=== PATIENT | male | born 1970 | race Caucasian/White ===

== ENCOUNTER 2023-01-11 01:12 | Inpatient (IN) | payer OTHER ==
[2023-01-11] MEDS ORDERED: SODIUM CHLORIDE 0.9% 1,000 ML IV STA (01:15)
[2023-01-11] MEDS ORDERED: THIAMINE 100 MG/ML 2 ML VIAL IM STA (01:15)
[2023-01-11] MEDS ORDERED: ONDANSETRON 4 MG/2 ML VIAL IVP STA ×2 (01:16→03:47)
[2023-01-11] MEDS ORDERED: LORazepam 2 MG/ML INJ IV PRN ×2 (01:16)
--- NOTE | 2023-01-11 01:26 | ED ---
Alcohol HPI - General Chief Complaint: Alcohol Stated Complaint: withdrawl Time Seen by Provider: 01/11/23 01:13 Source: patient, RN notes reviewed Mode of arrival: EMS Limitations: no limitations - History of Present Illness Initial Comments: This is a 52-year-old male who presents to the emergency department for alcohol withdrawals. Patient's last drink was last night. States that he consumed 1 pint of vodka, which he typically does daily. He went to check himself into [facility] last night. However, he started to go through withdrawals and was found to be shaking profusely. He was last given Ativan at [facility] around 8 PM yesterday evening. [facility] noted him to be tachycardic with a pulse of 152 and a blood pressure of 99/60, prompting them to call EMS. Shortly after arriving in the emergency department, he started to vomit. States that he has been drinking heavily since he was 16 years old and has never been to rehab be fore or stopped using alcohol to any extent, and has thus never gone through withdrawals. Denies any history of seizures. Denies any fevers, chills, sore throat, cough, dyspnea, chest pain, palpitations, abdominal pain, diarrhea, back pain, or headaches. MD Complaint: alcohol withdrawal - Related Data Home Medications Medication Instructions Recorded Confirmed Acetaminophen Tab [Tylenol] 650 mg PO QID PRN 01/11/23 01/11/23 Amoxicillin 1,000 mg PO BID@0600,1600 01/11/23 01/11/23 Calcium/Magnesium/Zinc/Vitamin D 1 tab PO TID 01/11/23 01/11/23 334/134/5mg Chlorpheniramine Maleate 4 mg PO Q4H PRN 01/11/23 01/11/23 [Chlor-Trimeton] Clarithromycin [Biaxin] 500 mg PO BID@0600,1600 01/11/23 01/11/23 Glimepiride [Amaryl] 2 mg PO DAILY@0600 01/11/23 01/11/23 Ibuprofen [Motrin Ib] 600 mg PO Q6H PRN 01/11/23 01/11/23 LORazepam [Ativan] 1 - 2 mg PO Q4H PRN 01/11/23 01/11/23 Loperamide HCl [Imodium A-D] 4 mg PO QID PRN 01/11/23 01/11/23 Omeprazole 20 mg PO TID@0600,1130,1630 01/11/23 01/11/23 Potassium Chloride ER [K-Dur 10] 20 meq PO DAILY@0600 01/11/23 01/11/23 amLODIPine [Norvasc] 5 mg PO DAILY@0600 01/11/23 01/11/23 ondansetron HCL [Zofran] 8 mg PO Q6H PRN 01/11/23 01/11/23 Allergies Allergy/AdvReac Type Severity Reaction Status Date / Time No Known Allergies Allergy Verified 01/11/23 07:49 Review of Systems ROS Statement: Those systems with pertinent positive or pertinent negative responses have been documented in the HPI. ROS Other: All systems not noted in ROS Statement are negative. Past Medical History - Past Family History Mother Family Medical History: Cancer Additional Family Medical History / Comment(s): breast Father Family Medical History: Cancer Additional Family Medical History / Comment(s): colon General Exam Limitations: no limitations General appearance: alert, other (visibly shaking) Head exam: Present: atraumatic, normocephalic, normal inspection Eye exam: Present: normal appearance, PERRL, EOMI. Absent: scleral icterus, conjunctival injection, periorbital swelling Respiratory exam: Present: normal lung sounds bilaterally. Absent: respiratory distress, wheezes, rales, rhonchi, stridor Cardiovascular Exam: Present: regular rate, normal rhythm, normal heart sounds. Absent: systolic murmur, diastolic murmur, rubs, gallop, clicks Neurological exam: Present: alert, oriented X3, CN II-XII intact Psychiatric exam: Present: normal affect, normal mood Skin exam: Present: warm, dry, intact, normal color. Absent: rash Course Vital Signs 01/11/23 01/11/23 01/11/23 01:19 02:00 03:00 Temperature 98.2 F Pulse Rate 126 H 101 H 102 H Respiratory 16 16 16 Rate Blood Pressure 171/96 176/109 151/95 O2 Sat by Pulse 100 98 99 Oximetry 01/11/23 01/11/23 01/11/23 04:00 05:00 08:39 Temperature Pulse Rate 100 101 H 100 Respiratory 16 16 18 Rate Blood Pressure 151/95 169/103 132/105 O2 Sat by Pulse 98 98 98 Oximetry 01/11/23 01/11/23 01/11/23 10:20 11:19 13:02 Temperature 98.3 F Pulse Rate 114 H 89 108 H Respiratory 20 18 Rate Blood Pressure 154/102 108/74 O2 Sat by Pulse 99 96 Oximetry Medical Decision Making - Medical Decision Making This is a 52-year-old male who presents to the emergency department for alcohol withdrawals. Was pt. sent in by a medical professional or institution? @ -[facility] Did you speak to anyone other than the patient for history? @ -EMS Did you review nursing and triage notes? @ -Yes, and I agree, it is accurate with regards to the patient's symptoms. Were old charts reviewed? @ -No Differential Diagnosis? @ -Differential Alcohol Withdrawals: Sympathomimetic syndrome, anti-muscarinic syndrome, serotonin syndrome, neuroleptic malignant syndrome, thyrotoxicosis, encephalitis, acute psychosis, hypoglycemia, trauma, sepsis. This is not meant to be an all-inclusive list. EKG interpreted by me (3pts min.)? @ -Sinus rhythm. Ventricular rate 96 bpm, ND interval 169 ms, QRS duration 92 ms, QTC 447 ms. What testing was considered but not performed? (CT, X-rays, U/S, labs)? Why? @ -None What meds were considered but not given? Why? @ -None Did you discuss the management of the patient with other professionals? @ -Yes, Dr. Johnson spoke with Dr. Diaz, who accepts the patient for admission. Did you reconcile home meds? @ -No Was smoking cessation discussed for >3mins.? @ -No Was critical care preformed (if so, how long)? @ -No Were there social determinants of health that impacted care today? How? (Homelessness, low income, unemployed, alcoholism, drug addiction, transportation, low edu. Level, literacy, decrease access to med. care, fpc, rehab)? @ -No Was there de-escalation of care discussed even if they declined? (Discuss DNR or withdrawal of care, Hospice)? @ -No What co-morbidities impacted this encounter? (DM, HTN, Smoking, COPD, CAD, Cancer, CVA, Hep., AIDS, mental health diagnosis, sleep apnea, morbid obesity)? @ -Alcoholism, DM, HTN, GERD Was patient admitted / discharged? @ -Admitted. CIWA protocol was initiated on arrival. Lab work obtained revealing multiple electrolyte irregularities, including hypokalemia, hypomagnesemia, and hypocalcemia. He was given 4g of IV magnesium sulfate and 1g of IV calcium gluconate. We attempted to give him 40 mEq of K-dur, however he proceeded to throw this back up and he was subsequently given IVPB potassium chloride. Liver enzymes are also notably elevated. We do not have any prior values for comparison, however this is to be expected with his chronic alcohol use. 1 liter bolus of IV fluids, IM thiamine, and Zofran were administered as well. He did continue to be notably shaky in the emergency department. Given the multiple electrolyte irregularities and alcohol withdrawal symptoms, patient admitted to medicine for further management. Undiagnosed new problem with uncertain prognosis? @ -None Drug Therapy requiring intensive monitoring for toxicity (Heparin, Nitro, Insulin, Cardizem)? @ -None Were any procedures done? @ -None Diagnosis/symptom? @ -Alcohol withdrawals, hypomagnesemia, hypocalcemia, hypokalemia Acute, or Chronic, or Acute on Chronic? @ -Acute Uncomplicated (without systemic symptoms) or Complicated (systemic symptoms)? @ -Complicated Side effects of treatment? @ -None Exacerbation, Progression, or Severe Exacerbation] @ -Not applicable Poses a threat to life or bodily function? @ -Yes This case was discussed in detail with the attending ED physician, Dr. Johnson. Presentation, findings, and treatment plan discussed in detail as well. - Lab Data Result diagrams: 01/11/23 01:33 01/11/23 01:33 Lab Results 01/11/23 01/11/23 01/11/23 Range/Units 01:33 01:33 01:33 WBC 9.4 (3.8-10.6) k/uL RBC 3.79 L (4.30-5.90) m/uL Hgb 14.4 (13.0-17.5) gm/dL Hct 40.9 (39.0-53.0) % MCV 107.9 H (80.0-100.0) fL MCH 37.9 H (25.0-35.0) pg MCHC 35.2 (31.0-37.0) g/dL RDW 13.9 (11.5-15.5) % Plt Count 67 L (150-450) k/uL MPV 10.3 Neutrophils % 67 % Lymphocytes % 24 % Monocytes % 6 % Eosinophils % 1 % Basophils % 1 % Neutrophils # 6.3 (1.3-7.7) k/uL Lymphocytes # 2.3 (1.0-4.8) k/uL Monocytes # 0.6 (0-1.0) k/uL Eosinophils # 0.1 (0-0.7) k/uL Basophils # 0.1 (0-0.2) k/uL Macrocytosis Moderate PT 12.2 H (9.0-12.0) sec INR 1.2 H (<1.2) Sodium 137 (137-145) mmol/L Potassium 3.1 L (3.5-5.1) mmol/L Chloride 97 L (98-107) mmol/L Carbon Dioxide 25 (22-30) mmol/L Anion Gap 15 mmol/L BUN 8 L (9-20) mg/dL Creatinine 0.49 L (0.66-1.25) mg/dL Est GFR (CKD-EPI)AfAm >90 (>60 ml/min/1.73 sqM) Est GFR (CKD-EPI)NonAf >90 (>60 ml/min/1.73 sqM) Glucose 177 H (74-99) mg/dL Calcium 8.0 L (8.4-10.2) mg/dL Phosphorus 3.3 (2.5-4.5) mg/dL Magnesium 1.0 L (1.6-2.3) mg/dL Total Bilirubin 2.3 H (0.2-1.3) mg/dL AST 248 H (17-59) U/L ALT 64 H (4-49) U/L Alkaline Phosphatase 94 (38-126) U/L Total Protein 7.3 (6.3-8.2) g/dL Albumin 3.8 (3.5-5.0) g/dL Amylase 41 (30-110) U/L Lipase 254 (23-300) U/L Urine Color Urine Appearance (Clear) Urine pH (5.0-8.0) Ur Specific Fifield (1.001-1.035) Urine Protein (Negative) Urine Glucose (UA) (Negative) Urine Ketones (Negative) Urine Blood (Negative) Urine Nitrite (Negative) Urine Bilirubin (Negative) Urine Urobilinogen (<2.0) mg/dL Ur Leukocyte Esterase (Negative) Urine Opiates Screen (NotDetected) Ur Oxycodone Screen (NotDetected) Urine Methadone Screen (NotDetected) Ur Propoxyphene Screen (NotDetected) Ur Barbiturates Screen (NotDetected) U Tricyclic Antidepress (NotDetected) Ur Phencyclidine Scrn (NotDetected) Ur Amphetamines Screen (NotDetected) U Methamphetamines Scrn (NotDetected) U Benzodiazepines Scrn (NotDetected) Urine Cocaine Screen (NotDetected) U Marijuana (THC) Screen (NotDetected) Serum Alcohol 27 mg/dL 01/11/23 Range/Units 03:46 WBC (3.8-10.6) k/uL RBC (4.30-5.90) m/uL Hgb (13.0-17.5) gm/dL Hct (39.0-53.0) % MCV (80.0-100.0) fL MCH (25.0-35.0) pg MCHC (31.0-37.0) g/dL RDW (11.5-15.5) % Plt Count (150-450) k/uL MPV Neutrophils % % Lymphocytes % % Monocytes % % Eosinophils % % Basophils % % Neutrophils # (1.3-7.7) k/uL Lymphocytes # (1.0-4.8) k/uL Monocytes # (0-1.0) k/uL Eosinophils # (0-0.7) k/uL Basophils # (0-0.2) k/uL Macrocytosis PT (9.0-12.0) sec INR (<1.2) Sodium (137-145) mmol/L Potassium (3.5-5.1) mmol/L Chloride (98-107) mmol/L Carbon Dioxide (22-30) mmol/L Anion Gap mmol/L BUN (9-20) mg/dL Creatinine (0.66-1.25) mg/dL Est GFR (CKD-EPI)AfAm (>60 ml/min/1.73 sqM) Est GFR (CKD-EPI)NonAf (>60 ml/min/1.73 sqM) Glucose (74-99) mg/dL Calcium (8.4-10.2) mg/dL Phosphorus (2.5-4.5) mg/dL Magnesium (1.6-2.3) mg/dL Total Bilirubin (0.2-1.3) mg/dL AST (17-59) U/L ALT (4-49) U/L Alkaline Phosphatase (38-126) U/L Total Protein (6.3-8.2) g/dL Albumin (3.5-5.0) g/dL Amylase (30-110) U/L Lipase (23-300) U/L Urine Color Yellow Urine Appearance Clear (Clear) Urine pH 6.5 (5.0-8.0) Ur Specific Fifield 1.011 (1.001-1.035) Urine Protein Negative (Negative) Urine Glucose (UA) 4+ H (Negative) Urine Ketones Negative (Negative) Urine Blood Negative (Negative) Urine Nitrite Negative (Negative) Urine Bilirubin Negative (Negative) Urine Urobilinogen <2.0 (<2.0) mg/dL Ur Leukocyte Esterase Negative (Negative) Urine Opiates Screen Not Detected (NotDetected) Ur Oxycodone Screen Not Detected (NotDetected) Urine Methadone Screen Not Detected (NotDetected) Ur Propoxyphene Screen Not Detected (NotDetected) Ur Barbiturates Screen Not Detected (NotDetected) U Tricyclic Antidepress Not Detected (NotDetected) Ur Phencyclidine Scrn Not Detected (NotDetected) Ur Amphetamines Screen Not Detected (NotDetected) U Methamphetamines Scrn Not Detected (NotDetected) U Benzodiazepines Scrn Detected H (NotDetected) Urine Cocaine Screen Not Detected (NotDetected) U Marijuana (THC) Screen Detected H (NotDetected) Serum Alcohol mg/dL Disposition Clinical Impression: Alcohol withdrawal syndrome, Hypomagnesemia, Hypocalcemia, Hypokalemia Disposition: ADMITTED IP TO THIS HOSP
[2023-01-11 01:39] LABS: Basophils # (A) 0.1 k/uL (0-0.2); Basophils % (A) 1 %; Eosinophils # (A) 0.1 k/uL (0-0.7); Eosinophils % (A) 1 %; HCT 40.9 % (39.0-53.0); HGB 14.4 gm/dL (13.0-17.5); Lymphocytes # (A) 2.3 k/uL (1.0-4.8); Lymphocytes % (A) 24 %; MCH 37.9 pg (25.0-35.0); MCHC 35.2 g/dL (31.0-37.0); MCV 107.9 fL (80.0-100.0); Macrocytosis Moderate; Mean Platelet Volume 10.3; Monocytes # (A) 0.6 k/uL (0-1.0); Monocytes % (A) 6 %; Neutrophils # (A) 6.3 k/uL (1.3-7.7); Neutrophils % (A) 67 %; RBC 3.79 m/uL (4.30-5.90); RDW 13.9 % (11.5-15.5); WBC 9.4 k/uL (3.8-10.6)
[2023-01-11 01:52] LABS: ALT 64 U/L (4-49); AST 248 U/L (17-59); African American GFR (CKD) >90 (>60 ml/min/1.73 sqM); Albumin 3.8 g/dL (3.5-5.0); Alcohol 27 mg/dL; Alkaline Phosphatase 94 U/L (38-126); Amylase 41 U/L (30-110); Anion Gap 15 mmol/L; Blood Urea Nitrogen 8 mg/dL (9-20); Carbon Dioxide 25 mmol/L (22-30); Chloride 97 mmol/L (98-107); Glucose 177 mg/dL (74-99); Lipase 254 U/L (23-300); Non-African American GFR(CKD) >90 (>60 ml/min/1.73 sqM); Phosphorus 3.3 mg/dL (2.5-4.5); Potassium 3.1 mmol/L (3.5-5.1); Sodium 137 mmol/L (137-145); Total Bilirubin 2.3 mg/dL (0.2-1.3); Total Protein 7.3 g/dL (6.3-8.2)
[2023-01-11] MEDS ORDERED: CALCIUM GLUCONATE IN NACL 1 GM in SALINE 1 100ML.BAG IVPB ONE (01:58)
[2023-01-11 02:21] LABS: Platelet Count 67 k/uL (150-450)
[2023-01-11] MEDS: MAGNESIUM SULFATE-D5W PMX 1 GM in DEXTROSE/WATER 1 100ML.BAG IVPB SCH ×6 (02:23→18:37)
[2023-01-11] MEDS ORDERED: POTASSIUM CHLORIDE ER 20 MEQ TAB.ER PO STA (03:16)
[2023-01-11 03:21] LABS: INR 1.2 (<1.2); Prothrombin Time 12.2 sec (9.0-12.0)
[2023-01-11] MEDS ORDERED: POTASSIUM CHLORIDE 20 MEQ in WATER FOR INJECTION 1 100ML.BAG IVPB STA (03:49)
[2023-01-11 04:20] LABS: Appearance,Urine Clear (Clear); Bilirubin,Urine Negative (Negative); Blood,Urine Negative (Negative); Color,Urine Yellow; Glucose,Urine (UA) 4+ (Negative); Ketones,Urine Negative (Negative); Leukocyte Esterase,Urine Negative (Negative); Nitrite,Urine Negative (Negative); PH, Urine 6.5 (5.0-8.0); Protein,Urine Negative (Negative); Specific Gravity,Urine 1.011 (1.001-1.035); Urobilinogen,Urine <2.0 mg/dL (<2.0)
[2023-01-11 04:46] LABS: Amphetamine Screen,Urine Not Detected (NotDetected); Barbiturate Screen,Urine Not Detected (NotDetected); Benzodiazepines Screen,Urine Detected (NotDetected); Cocaine Screen,Urine Not Detected (NotDetected); Methadone Screen, Urine Not Detected (NotDetected); Opiate Screen,Urine Not Detected (NotDetected); Oxycodone Screen, Urine Not Detected (NotDetected); Phencyclidine Screen,Urine Not Detected (NotDetected); Tricyclic Antidepressant,Urine Not Detected (NotDetected); Urn Cannabinoid Scrn Detected (NotDetected)
[2023-01-11] MEDS ORDERED: NALOXONE 0.4 MG/ML 1 ML VIAL IV PRN (04:48)
[2023-01-11] MEDS ORDERED: IBUPROFEN 400 MG TAB PO PRN (04:48)
[2023-01-11] MEDS ORDERED: KETOROLAC 15 MG/ML 1 ML VIAL IVP PRN (04:48)
[2023-01-11] MEDS ORDERED: ONDANSETRON 4 MG/2 ML VIAL IVP PRN (04:48)
[2023-01-11] MEDS: LORazepam 2 MG/ML INJ IV PRN ×3 (07:18→11:13)
[2023-01-11] MEDS: PANTOPRAZOLE 40 MG/10 ML VIAL IV SCH (08:35)
[2023-01-11] MEDS: THIAMINE 100 MG TAB PO SCH (08:36)
[2023-01-11] MEDS ORDERED: ACETAMINOPHEN TAB 325 MG TAB PO PRN (16:04)
[2023-01-11] MEDS ORDERED: diphenhydrAMINE 25 MG CAP PO PRN (16:04)
[2023-01-11] MEDS ORDERED: ONDANSETRON 4 MG TAB PO PRN (16:04)
[2023-01-11] MEDS ORDERED: LOPERAMIDE 2 MG CAP PO PRN (16:04)
[2023-01-11] MEDS ORDERED: NON FORMULARY DRUG (Omeprazole [Omeprazole] 20 MG Capsule.Dr) PO SCH (16:30)
[2023-01-11 20:02] LABS: Glucose,Whole Blood 240 mg/dL (70-110)
[2023-01-11] MEDS ORDERED: NON FORMULARY DRUG (Calcium/Magnesium/Zinc/Vitamin D 334/134/5mg 1 TAB) PO SCH (22:00)
[2023-01-12] MEDS: LORazepam 2 MG/ML INJ IV PRN ×4 (03:05→21:10)
[2023-01-12 05:50] LABS: Glucose,Whole Blood 176 mg/dL (70-110)
[2023-01-12] MEDS: POTASSIUM CHLORIDE ER 20 MEQ TAB.ER PO SCH ×4 (06:00→13:36)
[2023-01-12] MEDS: amLODIPine 5 MG TAB PO SCH (06:00)
[2023-01-12] MEDS: GLIMEPIRIDE 2 MG TAB PO SCH (06:00)
--- NOTE | 2023-01-12 06:39 | HP ---
HISTORY AND PHYSICAL HISTORY OF PRESENT ILLNESS: A 52-year-old male came to the hospital from [facility] for tremors and alcohol withdrawals. He is nauseated. He was dehydrated. PAST MEDICAL HISTORY: Alcohol withdrawal. MEDICATIONS: Include multiple vitamins at home. He takes, 1. Amaryl 2 mg daily for diabetes. 2. Ativan p.r.n. 3. Omeprazole 20 t.i.d. 4. Norvasc 5 mg daily. ALLERGIES: Negative. REVIEW OF SYSTEMS: A 14-point review of systems is negative except for tremor. PAST MEDICAL HISTORY: Reviewed. SOCIAL HISTORY: Reviewed. PHYSICAL EXAMINATION: VITAL SIGNS: Temperature 98.2, pulse is 101 to 126, respiratory rate 12 to 16, blood pressure is 150s to 170s over 90s to 100s. CARDIOVASCULAR: S1, S2. LUNGS: Transmitted upper sounds. HEMATOLOGY: Negative Homans. PSYCH: Fair mood and affect. NEUROLOGIC: Mild tremor. ASSESSMENT: Alcohol withdrawal, hypertension acceleration, possible depression. Continue current treatments. blood pressure control. Monitor liver enzymes. Prognosis guarded. MMODL / IJN: [id number] /
[2023-01-12] MEDS: PANTOPRAZOLE 40 MG/10 ML VIAL IV SCH (08:38)
[2023-01-12] MEDS: THIAMINE 100 MG TAB PO SCH (08:38)
[2023-01-12 09:28] LABS: Basophils % (A) 0 %; Eosinophils # (A) 0.1 k/uL (0-0.7); Eosinophils % (A) 1 %; HGB 13.3 gm/dL (13.0-17.5); Lymphocytes # (A) 1.5 k/uL (1.0-4.8); Lymphocytes % (A) 19 %; MCV 108.7 fL (80.0-100.0); Macrocytosis Marked; Mean Platelet Volume 11.2; Monocytes # (A) 0.5 k/uL (0-1.0); Monocytes % (A) 6 %; Neutrophils # (A) 5.7 k/uL (1.3-7.7); Neutrophils % (A) 73 %; RBC 3.59 m/uL (4.30-5.90); RDW 13.8 % (11.5-15.5); WBC 7.8 k/uL (3.8-10.6)
[2023-01-12 09:49] LABS: ALT 48 U/L (4-49); AST 155 U/L (17-59); African American GFR (CKD) >90 (>60 ml/min/1.73 sqM); Albumin 3.3 g/dL (3.5-5.0); Alkaline Phosphatase 93 U/L (38-126); Anion Gap 9 mmol/L; Blood Urea Nitrogen 9 mg/dL (9-20); Calcium 7.4 mg/dL (8.4-10.2); Carbon Dioxide 28 mmol/L (22-30); Chloride 95 mmol/L (98-107); Glucose 225 mg/dL (74-99); Magnesium 1.9 mg/dL (1.6-2.3); Non-African American GFR(CKD) >90 (>60 ml/min/1.73 sqM); Potassium 2.9 mmol/L (3.5-5.1); Sodium 132 mmol/L (137-145); Total Bilirubin 2.5 mg/dL (0.2-1.3); Total Protein 6.7 g/dL (6.3-8.2)
[2023-01-12] MEDS ORDERED: MAGNESIUM SULFATE-D5W PMX 1 GM in DEXTROSE/WATER 1 100ML.BAG IVPB ONE (10:45)
[2023-01-12] MEDS ORDERED: Magnesium Replacement Protocol 1 EACH MISC MISCELLANE PRN (10:45)
[2023-01-12] MEDS ORDERED: Potassium Replacement Protocol 1 EACH MISC MISCELLANE PRN (10:47)
[2023-01-12 11:22] LABS: Platelet Count 64 k/uL (150-450)
[2023-01-12 11:36] LABS: Glucose,Whole Blood 178 mg/dL (70-110)
[2023-01-12 16:40] LABS: Glucose,Whole Blood 219 mg/dL (70-110)
[2023-01-12 20:24] LABS: Glucose,Whole Blood 167 mg/dL (70-110)
[2023-01-13] MEDS: LORazepam 2 MG/ML INJ IV PRN (01:15)
[2023-01-13] MEDS: amLODIPine 5 MG TAB PO SCH (05:34)
[2023-01-13 05:35] VITALS: RESP 18
[2023-01-13 06:20] LABS: Glucose,Whole Blood 124 mg/dL (70-110)
[2023-01-13] MEDS: POTASSIUM CHLORIDE ER 20 MEQ TAB.ER PO SCH (07:05)
[2023-01-13] MEDS: GLIMEPIRIDE 2 MG TAB PO SCH (07:06)
[2023-01-13 07:44] LABS: Basophils % (A) 0 %; Eosinophils # (A) 0.1 k/uL (0-0.7); Eosinophils % (A) 2 %; HCT 41.4 % (39.0-53.0); HGB 14.2 gm/dL (13.0-17.5); Lymphocytes # (A) 2.3 k/uL (1.0-4.8); Lymphocytes % (A) 26 %; MCH 38.2 pg (25.0-35.0); MCHC 34.3 g/dL (31.0-37.0); Macrocytosis Marked; Mean Platelet Volume 11.4; Monocytes # (A) 0.5 k/uL (0-1.0); Monocytes % (A) 6 %; Neutrophils # (A) 5.7 k/uL (1.3-7.7); Neutrophils % (A) 64 %; RBC 3.71 m/uL (4.30-5.90); RDW 13.9 % (11.5-15.5); WBC 8.9 k/uL (3.8-10.6)
[2023-01-13 07:48] LABS: MCV 111.5 fL (80.0-100.0); Platelet Count 87 k/uL (150-450)
[2023-01-13 07:56] LABS: ALT 58 U/L (4-49); AST 174 U/L (17-59); African American GFR (CKD) >90 (>60 ml/min/1.73 sqM); Albumin 3.6 g/dL (3.5-5.0); Alkaline Phosphatase 92 U/L (38-126); Anion Gap 7 mmol/L; Blood Urea Nitrogen 10 mg/dL (9-20); Calcium 7.9 mg/dL (8.4-10.2); Carbon Dioxide 29 mmol/L (22-30); Chloride 100 mmol/L (98-107); Glucose 103 mg/dL (74-99); Magnesium 1.9 mg/dL (1.6-2.3); Non-African American GFR(CKD) >90 (>60 ml/min/1.73 sqM); Potassium 3.8 mmol/L (3.5-5.1); Sodium 136 mmol/L (137-145); Total Bilirubin 2.6 mg/dL (0.2-1.3); Total Protein 7.4 g/dL (6.3-8.2)
[2023-01-13] MEDS: PANTOPRAZOLE 40 MG/10 ML VIAL IV SCH (07:57)
[2023-01-13] MEDS: THIAMINE 100 MG TAB PO SCH (07:57)
[2023-01-13 11:47] LABS: Glucose,Whole Blood 225 mg/dL (70-110)
--- NOTE | 2023-01-13 11:47 | P.DS ---
Providers Date of admission: 01/11/23 07:54 Attending physician: Darien Diaz Primary care physician: Stated None Hospital Course: Pleasant 52-year-old male admitted for alcohol withdrawal patient last alcohol use was 4 days ago patient is presently not having withdrawals and patient is not requiring Ativan patient will be discharged today. Patient is on amlodipine for hypertension although patient blood pressure is on the low side because of which were discontinued and amlodipine and patient will be discharged today. Patient will go to [facility] today from here. Counseling regarding marijuana use was provided as well. PHYSICAL EXAMINATION: GENERAL: The patient is alert and oriented x3, not in any acute distress. Well developed, well nourished. HEENT: Pupils are round and equally reacting to light. EOMI. No scleral icterus. No conjunctival pallor. Normocephalic, atraumatic. No pharyngeal erythema. No thyromegaly. CARDIOVASCULAR: S1 and S2 present. No murmurs, rubs, or gallops. PULMONARY: Chest is clear to auscultation, no wheezing or crackles. ABDOMEN: Soft, nontender, nondistended, normoactive bowel sounds. No palpable organomegaly. MUSCULOSKELETAL: No joint swelling or deformity. EXTREMITIES: No cyanosis, clubbing, or pedal edema. NEUROLOGICAL: Gross neurological examination did not reveal any focal deficits. SKIN: No rashes. -Alcohol withdrawal resolved -Acute alcoholic hepatitis improved -Hypertension Gastroesophageal visual reflux disease Plan - Discharge Summary Discharge Rx Participant: Yes New Discharge Prescriptions: New Thiamine [Vitamin B-1] 100 mg PO DAILY #30 tab Continue ondansetron HCL [Zofran] 8 mg PO Q6H PRN PRN Reason: Nausea Acetaminophen Tab [Tylenol] 650 mg PO QID PRN PRN Reason: Pain Loperamide HCl [Imodium A-D] 4 mg PO QID PRN PRN Reason: Diarrhea Ibuprofen [Motrin Ib] 600 mg PO Q6H PRN PRN Reason: Pain Glimepiride [Amaryl] 2 mg PO DAILY@0600 Calcium/Magnesium/Zinc/Vitamin D 334/134/5mg 1 tab PO TID LORazepam [Ativan] 1 - 2 mg PO Q4H PRN PRN Reason: Alcohol Withdrawal Potassium Chloride ER [K-Dur 10] 20 meq PO DAILY@0600 Omeprazole 20 mg PO TID@0600,1130,1630 Chlorpheniramine Maleate [Chlor-Trimeton] 4 mg PO Q4H PRN PRN Reason: Allergy Symptoms Discontinued Amoxicillin 1,000 mg PO BID@0600,1600 amLODIPine [Norvasc] 5 mg PO DAILY@0600 Clarithromycin [Biaxin] 500 mg PO BID@0600,1600 Discharge Medication List Acetaminophen Tab [Tylenol] 650 mg PO QID PRN 01/11/23 [History] Calcium/Magnesium/Zinc/Vitamin D 334/134/5mg 1 tab PO TID 01/11/23 [History] Chlorpheniramine Maleate [Chlor-Trimeton] 4 mg PO Q4H PRN 01/11/23 [History] Glimepiride [Amaryl] 2 mg PO DAILY@0600 01/11/23 [History] Ibuprofen [Motrin Ib] 600 mg PO Q6H PRN 01/11/23 [History] LORazepam [Ativan] 1 - 2 mg PO Q4H PRN 01/11/23 [History] Loperamide HCl [Imodium A-D] 4 mg PO QID PRN 01/11/23 [History] Omeprazole 20 mg PO TID@0600,1130,1630 01/11/23 [History] Potassium Chloride ER [K-Dur 10] 20 meq PO DAILY@0600 01/11/23 [History] ondansetron HCL [Zofran] 8 mg PO Q6H PRN 01/11/23 [History] Thiamine [Vitamin B-1] 100 mg PO DAILY #30 tab 01/13/23 [Rx] Follow up Appointment(s)/Referral(s): Darien Diaz MD [STAFF PHYSICIAN] - 1 Week Activity/Diet/Wound Care/Special Instructions: Plan to return to [facility] [address] [place] [address] Discharge/Stand Alone Forms: Inp Substance Abuse Facilities
[2023-01-13 12:05] VITALS: BP 95/65; PULSE 107; TEMP 98.1
== END 2023-01-13 16:42 | disposition home or self-care (01) | DRG 897 ==
LOC: EC 01:12 → 3SCARD 07:54
PROVIDERS: ADMIT Family Medicine; ATTEND Family Medicine
PROC: HZ2ZZZZ Detoxification Services for Substance Abuse Treatment (ICD-10-PCS; principal; 2023-01-11)
DX: F10.231 Alcohol dependence with withdrawal delirium (principal); Y90.1 Blood alcohol level of 20-39 mg/100 ml; E83.42 Hypomagnesemia; I10 Essential (primary) hypertension; R00.0 Tachycardia, unspecified; F32.A Depression, unspecified; E83.51 Hypocalcemia; E87.6 Hypokalemia; E86.0 Dehydration; Z71.41 Alcohol abuse counseling and surveillance of alcoholic
CPT/HCPCS: 36415; 80053; 80306; 80320; 81003; 82150; 83690; 83735; 84100; 85025; 85610; 93005; 96361; 96365; 96366; 96372; 96375; 96376; 99285

== ENCOUNTER 2023-01-18 16:51 | Observation (INO) | payer OTHER ==
[2023-01-18] MEDS ORDERED: LORazepam 2 MG/ML INJ IV STA (17:49)
--- NOTE | 2023-01-18 17:59 | ED ---
General Adult HPI - General Chief complaint: Seizure Stated complaint: Seizure Time Seen by Provider: 01/18/23 16:53 Source: EMS Mode of arrival: EMS Limitations: no limitations - History of Present Illness Initial comments: Dictation was produced using goBramble dictation software. please excuse any grammatical, word or spelling errors. Chief Complaint: 52-year-old male presents emergency department for seizure History of Present Illness: 52-year-old male he has been at [facility] detox facility for approximately one week. His last drink was approximately 11 days ago. Patient was at group therapy when all of a sudden he had tonic-clonic convulsive activity. Patient doesn't recall the episode. Patient has any history of seizures. He has had alcohol withdrawals in the past. Patient denies any complaints at this time. He states that he is a normal tremor whenever his cold. He has had these tremors in the past with alcohol withdrawal. No other complaints at this time. The ROS documented in this emergency department record has been reviewed and confirmed by me. Those systems with pertinent positive or negative responses have been documented in the HPI. All other systems are other negative and/or noncontributory. - Related Data Home Medications Medication Instructions Recorded Confirmed Acetaminophen Tab [Tylenol] 650 mg PO QID PRN 01/11/23 01/11/23 Calcium/Magnesium/Zinc/Vitamin D 1 tab PO TID 01/11/23 01/11/23 334/134/5mg Chlorpheniramine Maleate 4 mg PO Q4H PRN 01/11/23 01/11/23 [Chlor-Trimeton] Glimepiride [Amaryl] 2 mg PO DAILY@0600 01/11/23 01/11/23 Ibuprofen [Motrin Ib] 600 mg PO Q6H PRN 01/11/23 01/11/23 Loperamide HCl [Imodium A-D] 4 mg PO QID PRN 01/11/23 01/11/23 Omeprazole 20 mg PO TID@0600,1130,1630 01/11/23 01/11/23 ondansetron HCL [Zofran] 8 mg PO Q6H PRN 01/11/23 01/11/23 Amoxicillin 1,000 mg PO BID 01/18/23 01/18/23 Clarithromycin [Biaxin] 500 mg PO Q12HR 01/18/23 01/18/23 Levsin (Unknown Dose) 1 dose PO QID PRN 01/18/23 01/18/23 amLODIPine [Norvasc] 5 mg PO DAILY 01/18/23 01/18/23 traZODone HCL [Desyrel] 50 - 150 mg PO HS PRN 01/18/23 01/18/23 Previous Rx's Medication Instructions Recorded Thiamine [Vitamin B-1] 100 mg PO DAILY #30 tab 01/13/23 Allergies Allergy/AdvReac Type Severity Reaction Status Date / Time No Known Allergies Allergy Verified 01/18/23 20:52 Review of Systems ROS Statement: Those systems with pertinent positive or pertinent negative responses have been documented in the HPI. ROS Other: All systems not noted in ROS Statement are negative. Past Medical History Past Medical History: Cancer Additional Past Medical History / Comment(s): Colon CA Chemo medication to treat, Jun 2020 History of Any Multi-Drug Resistant Organisms: None Reported Past Surgical History: No Surgical Hx Reported Additional Past Surgical History / Comment(s): Colon resection - 2019 Past Anesthesia/Blood Transfusion Reactions: No Reported Reaction Past Psychological History: No Psychological Hx Reported Smoking Status: Current every day smoker Past Alcohol Use History: Abuse Past Drug Use History: Marijuana - Past Family History Mother Family Medical History: Cancer Additional Family Medical History / Comment(s): breast Father Family Medical History: Cancer Additional Family Medical History / Comment(s): colon General Exam - General Exam Comments Initial Comments: PHYSICAL EXAM: General Impression: Alert and oriented x3, tremulous HEENT: Normocephalic atraumatic, extra-ocular movements intact, pupils equal and reactive to light bilaterally, mucous membranes moist. Cardiovascular: Heart regular rate and rhythm Chest: Able to complete full sentences, no retractions, no tachypnea Abdomen: abdomen soft, non-tender, non-distended, no organomegaly Musculoskeletal: Pulses present and equal in all extremities, no peripheral edema Motor: no focal deficits noted Neurological: CN II-XII grossly intact, no focal motor or sensory deficits noted Skin: Intact with no visualized rashes Psych: Normal affect and mood Limitations: no limitations Course Vital Signs 01/18/23 16:55 Temperature 98.1 F Pulse Rate 94 Respiratory 16 Rate Blood Pressure 160/86 O2 Sat by Pulse 95 Oximetry Medical Decision Making - Medical Decision Making Was pt. sent in by a medical professional or institution (IHSAN Goldman, FOREIGN LANGUAGE STENOGRAPHER, urgent care, hospital, or group home...) When possible be specific @ -Patient sent in from detox facility Did you speak to anyone other than the patient for history (EMS, parent, family, police, friend...)? What history was obtained from this source @ -No Did you review nursing and triage notes (agree or disagree)? Why? @ -I reviewed and agree with nursing and triage notes Were old charts reviewed (outside hosp., previous admission, EMS record, old EKG, old radiological studies, urgent care reports/EKG's, group home records)? Report findings @ -Prior documentation from recent admission was reviewed. Patient was admitted for assumed alcoholic withdrawal seizure. Discharged without neurology evaluation Differential Diagnosis (chest pain, altered mental status, abdominal pain women, abdominal pain men, vaginal bleeding, musculoskeletal, weakness, fever, dyspnea, syncope, headache, dizziness, GI bleed, back pain, seizure, CVA, palpatations, mental health)? @ -Differential Seizure: Recurrent seizure disorder, febrile seizure, alcohol withdrawal, stimulants, meningitis, encephalitis, intercranial hemorrhage, intracranial tumor, stroke, eclampsia, thyrotoxicosis, hypocalcemia, hyponatremia, hypernatremia, hypomagnesemia, psychogenic, this is not meant to be an all-inclusive list. EKG interpreted by me (3pts min.). @ -None done X-rays interpreted by me (1pt min.). @ -None done CT interpreted by me (1pt min.). @ -CT of the brain is unremarkable U/S interpreted by me (1pt. min.). @ -None done What testing was considered but not performed or refused? (CT, X-rays, U/S, labs)? Why? @ -None What meds were considered but not given or refused? Why? @ -None Did you discuss the management of the patient with other professionals (professionals i.e. IHSAN Goldman, FOREIGN LANGUAGE STENOGRAPHER, lab, RT, psych nurse, social service liaison, rn wellness, teacher, weapons officer naval activity, case filler)? Give summary @ -Case discussed with hospitalist for admission Was smoking cessation discussed for >3mins.? @ -No Was critical care preformed (if so, how long)? @ -No Were there social determinants of health that impacted care today? How? (Homelessness, low income, unemployed, alcoholism, drug addiction, transportation, low edu. Level, literacy, decrease access to med. care, halfway, rehab)? @ -Alcoholism Was there de-escalation of care discussed even if they declined (Discuss DNR or withdrawal of care, Hospice)? DNR status @ -No What co-morbidities impacted this encounter? (DM, HTN, Smoking, COPD, CAD, Can cer, CVA, ARF, Chemo, Hep., AIDS, mental health diagnosis, sleep apnea, morbid obesity)? @ -None Was patient admitted / discharged? Hospital course, mention meds given and route, prescriptions, significant lab abnormalities, going to OR and other pertinent info. @ -52-year-old male recently admitted for presumed alcoholic withdrawal seizure presents after having had another episode of seizure. Given that patient is so far from last alcohol intake patient be admitted with consultation to neurology. Undiagnosed new problem with uncertain prognosis? @ -No Drug Therapy requiring intensive monitoring for toxicity (Heparin, Nitro, Insulin, Cardizem)? @ -No Were any procedures done? @ -No Diagnosis/symptom? Acute, or Chronic, or Acute on Chronic? Uncomplicated (without systemic symptoms) or Complicated (systemic symptoms)? @ -1. Seizure Side effects of treatment? @ -No Exacerbation, Progression, or Severe Exacerbation? @ -No Poses a threat to life or bodily function? How? (Chest pain, [place], [place], pneumonia, PE, COPD, DKA, ARF, appy, cholecystitis, CVA, Diverticulitis, Homicidal, Suicid al, threat to staff... and all critical care pts) @ -yes - Lab Data Result diagrams: 01/18/23 18:32 01/18/23 18:32 Lab Results 01/18/23 01/18/23 01/18/23 Range/Units 18:32 18:32 18:32 WBC 7.3 (3.8-10.6) k/uL RBC 3.55 L (4.30-5.90) m/uL Hgb 13.2 (13.0-17.5) gm/dL Hct 39.2 (39.0-53.0) % MCV 110.5 H (80.0-100.0) fL MCH 37.1 H (25.0-35.0) pg MCHC 33.6 (31.0-37.0) g/dL RDW 13.9 (11.5-15.5) % Plt Count 252 D (150-450) k/uL MPV 8.7 Neutrophils % 69 % Lymphocytes % 17 % Monocytes % 11 % Eosinophils % 1 % Basophils % 1 % Neutrophils # 5.0 (1.3-7.7) k/uL Lymphocytes # 1.2 (1.0-4.8) k/uL Monocytes # 0.8 (0-1.0) k/uL Eosinophils # 0.1 (0-0.7) k/uL Basophils # 0.0 (0-0.2) k/uL Manual Slide Review Performed Macrocytosis Marked A PT 11.3 (9.0-12.0) sec INR 1.1 (<1.2) APTT 20.1 L (22.0-30.0) sec Sodium 137 (137-145) mmol/L Potassium 4.1 (3.5-5.1) mmol/L Chloride 103 (98-107) mmol/L Carbon Dioxide 26 (22-30) mmol/L Anion Gap 8 mmol/L BUN 12 (9-20) mg/dL Creatinine 0.47 L (0.66-1.25) mg/dL Est GFR (CKD-EPI)AfAm >90 (>60 ml/min/1.73 sqM) Est GFR (CKD-EPI)NonAf >90 (>60 ml/min/1.73 sqM) Glucose 165 H (74-99) mg/dL Plasma Lactic Acid Flavio (0.7-2.0) mmol/L Calcium 8.9 (8.4-10.2) mg/dL Magnesium 1.5 L (1.6-2.3) mg/dL Serum Alcohol <10 mg/dL 01/18/23 Range/Units 18:32 WBC (3.8-10.6) k/uL RBC (4.30-5.90) m/uL Hgb (13.0-17.5) gm/dL Hct (39.0-53.0) % MCV (80.0-100.0) fL MCH (25.0-35.0) pg MCHC (31.0-37.0) g/dL RDW (11.5-15.5) % Plt Count (150-450) k/uL MPV Neutrophils % % Lymphocytes % % Monocytes % % Eosinophils % % Basophils % % Neutrophils # (1.3-7.7) k/uL Lymphocytes # (1.0-4.8) k/uL Monocytes # (0-1.0) k/uL Eosinophils # (0-0.7) k/uL Basophils # (0-0.2) k/uL Manual Slide Review Macrocytosis PT (9.0-12.0) sec INR (<1.2) APTT (22.0-30.0) sec Sodium (137-145) mmol/L Potassium (3.5-5.1) mmol/L Chloride (98-107) mmol/L Carbon Dioxide (22-30) mmol/L Anion Gap mmol/L BUN (9-20) mg/dL Creatinine (0.66-1.25) mg/dL Est GFR (CKD-EPI)AfAm (>60 ml/min/1.73 sqM) Est GFR (CKD-EPI)NonAf (>60 ml/min/1.73 sqM) Glucose (74-99) mg/dL Plasma Lactic Acid Flavio 1.1 (0.7-2.0) mmol/L Calcium (8.4-10.2) mg/dL Magnesium (1.6-2.3) mg/dL Serum Alcohol mg/dL Disposition Clinical Impression: Seizure Disposition: ADMITTED IP TO THIS [facility] Condition: Fair Referrals: None,Stated [Primary Care Provider] - 1-2 days Decision Time: 21:04
[2023-01-18 19:01] LABS: Basophils % (A) 1 %; Eosinophils # (A) 0.1 k/uL (0-0.7); Eosinophils % (A) 1 %; HCT 39.2 % (39.0-53.0); HGB 13.2 gm/dL (13.0-17.5); Lymphocytes # (A) 1.2 k/uL (1.0-4.8); Lymphocytes % (A) 17 %; MCH 37.1 pg (25.0-35.0); MCHC 33.6 g/dL (31.0-37.0); MCV 110.5 fL (80.0-100.0); Macrocytosis Marked; Mean Platelet Volume 8.7; Monocytes # (A) 0.8 k/uL (0-1.0); Monocytes % (A) 11 %; Neutrophils % (A) 69 %; RBC 3.55 m/uL (4.30-5.90); RDW 13.9 % (11.5-15.5); WBC 7.3 k/uL (3.8-10.6)
[2023-01-18 19:15] LABS: African American GFR (CKD) >90 (>60 ml/min/1.73 sqM); Alcohol <10 mg/dL; Anion Gap 8 mmol/L; Blood Urea Nitrogen 12 mg/dL (9-20); Calcium 8.9 mg/dL (8.4-10.2); Carbon Dioxide 26 mmol/L (22-30); Chloride 103 mmol/L (98-107); Glucose 165 mg/dL (74-99); Magnesium 1.5 mg/dL (1.6-2.3); Non-African American GFR(CKD) >90 (>60 ml/min/1.73 sqM); Potassium 4.1 mmol/L (3.5-5.1); Sodium 137 mmol/L (137-145)
--- NOTE | 2023-01-18 19:36 | CT ---
EXAMINATION TYPE: CT brain wo con DATE OF EXAM: 01/18/2023 HISTORY: 1st seizure CT DLP: 1170.5 mGycm. Automated Exposure Control for Dose Reduction was Utilized. TECHNIQUE: CT scan of the head is performed without contrast. COMPARISON: None. FINDINGS: The calvarium is intact. There is no intracranial hemorrhage. There is no intracranial mass or mass effect. No definite new intra-axial or extra-axial attenuation defect. The paranasal sinuses, middle ear cavities, and mastoid sinus air cells are clear. The orbits are unremarkable. IMPRESSION: No acute process.
[2023-01-18 19:51] LABS: Platelet Count 252 k/uL (150-450)
[2023-01-18 19:53] LABS: INR 1.1 (<1.2); Prothrombin Time 11.3 sec (9.0-12.0)
[2023-01-18 20:09] LABS: Partial Thromboplastin Time 20.1 sec (22.0-30.0)
[2023-01-18] MEDS ORDERED: NALOXONE 0.4 MG/ML 1 ML VIAL IV PRN (20:58)
[2023-01-18] MEDS ORDERED: LORazepam 2 MG/ML INJ IV PRN (21:01)
[2023-01-18] MEDS: MAGNESIUM SULFATE-D5W PMX 1 GM in DEXTROSE/WATER 1 100ML.BAG IVPB SCH ×2 (21:09→23:09)
[2023-01-18] MEDS: SODIUM CHLORIDE 0.9% 1,000 ML IV SCH (21:15)
[2023-01-19] MEDS: THIAMINE 100 MG TAB PO SCH (10:44)
--- NOTE | 2023-01-19 12:21 | P.CNNES ---
History of Present Illness Consult date: 01/19/23 Requesting physician: Mike Linder Reason for Consult: seizure History of Present Illness: This is a 52-year-old gentleman with history of chronic alcohol use, history of colon cancer status post chemotherapy about 3 years ago, diabetes mellitus, peripheral neuropathy who presented emergency department from [facility] because of seizure. Patient stated that the he has a heavy alcohol use and has taken since the age of [age] years old and drinks heavily every day so he ended up going to rehab to [place] and his last drink was on 01/08/2023. It seems that yesterday patient's was in a meeting and all of a sudden he was on the floor and denies any auras prior to the episode. He denies any urinary or bowel incontinence, tongue bite. He does not recall the episode. He was told that possibly he had a seizure. Per the ED team the group therapy witnessed the tonic-clonic convulsive activity. Patient denies any history of seizures in the past. He'll he feels back to baseline. He denies any headache, nausea vomiting or any focal weakness. Regarding his history he states that was normal. He is not aware of any family history of seizures. Patient states he has been having the peripheral neuropathy mostly in the feet since he had the chemotherapy for his colon cancer. He uses a cane because of his the neuropathy since he feels unsteady when he walks. He also states he is diabetic as well. Some other workup during his hospital visit consisted of: MCV is 110, macrocytosis, hemoglobin is 13.2. Initial serum glucose is 165 the. Magnesium is 1.5. Calcium is 8.9. Plasma lactic acid vein is 1.1. Serum alcohol level is less than 10 CT of the brain is reported as no acute process. I personally reviewed the CT and I agree with the report. Review of Systems Review of system: The 12 point system was reviewed and apparent positive and negative per HPI. Past Medical History Past Medical History: Cancer Additional Past Medical History / Comment(s): Colon CA Chemo medication to treat, Jun 2020 History of Any Multi-Drug Resistant Organisms: None Reported Past Surgical History: No Surgical Hx Reported Additional Past Surgical History / Comment(s): Colon resection - 2019 Past Anesthesia/Blood Transfusion Reactions: No Reported Reaction Past Psychological History: No Psychological Hx Reported Smoking Status: Current every day smoker Past Alcohol Use History: Abuse Past Drug Use History: Marijuana - Past Family History Mother Family Medical History: Cancer Additional Family Medical History / Comment(s): breast Father Family Medical History: Cancer Additional Family Medical History / Comment(s): colon Medications and Allergies Home Medications Medication Instructions Recorded Confirmed Type Acetaminophen Tab [Tylenol] 650 mg PO QID PRN 01/11/23 01/18/23 History Calcium/Magnesium/Zinc/Vitamin D 1 tab PO TID 01/11/23 01/18/23 History 334/134/5mg Chlorpheniramine Maleate 4 mg PO Q4H PRN 01/11/23 01/18/23 History [Chlor-Trimeton] Glimepiride [Amaryl] 2 mg PO DAILY 01/11/23 01/18/23 History Ibuprofen [Motrin Ib] 600 mg PO Q6H PRN 01/11/23 01/18/23 History Loperamide HCl [Imodium A-D] 4 mg PO QID PRN 01/11/23 01/18/23 History Omeprazole 20 mg PO TID@0600,1130,1630 01/11/23 01/18/23 History ondansetron HCL [Zofran] 8 mg PO Q6H PRN 01/11/23 01/18/23 History Thiamine [Vitamin B-1] 100 mg PO DAILY #30 tab 01/13/23 01/18/23 Rx Amoxicillin 1,000 mg PO BID 01/18/23 01/18/23 History Clarithromycin [Biaxin] 500 mg PO Q12HR 01/18/23 01/18/23 History amLODIPine [Norvasc] 5 mg PO DAILY 01/18/23 01/18/23 History traZODone HCL [Desyrel] 50 - 150 mg PO HS PRN 01/18/23 01/18/23 History Hyoscyamine Sulfate [Levsin] 0.125 mg PO QID PRN 01/19/23 01/19/23 History Allergies Allergy/AdvReac Type Severity Reaction Status Date / Time No Known Allergies Allergy Verified 01/18/23 20:52 Physical Examination - Vital Signs Vital Signs: Vital Signs Temp Pulse Resp BP Pulse Ox 01/19/23 06:40 77 20 129/71 93 L 01/19/23 06:30 71 13 97 01/19/23 06:20 70 17 96 01/19/23 06:10 75 15 136/78 94 L 01/19/23 06:00 74 13 94 L 01/19/23 05:50 72 13 95 01/19/23 05:40 74 12 128/82 94 L 01/19/23 05:30 71 18 96 01/19/23 05:20 75 13 94 L 01/19/23 05:10 75 13 131/79 94 L 01/19/23 05:00 75 12 94 L 01/19/23 04:50 78 15 94 L 01/19/23 04:40 74 16 130/79 94 L 01/19/23 04:30 76 14 94 L 01/19/23 04:20 76 18 131/75 93 L 01/19/23 04:10 73 12 94 L 01/19/23 04:00 74 14 94 L 01/19/23 03:50 74 14 95 01/19/23 03:40 74 12 131/77 94 L 01/19/23 03:20 75 14 94 L 01/19/23 03:10 80 13 125/77 94 L 01/19/23 03:00 78 12 95 01/19/23 02:50 80 12 98 01/19/23 02:40 84 14 119/73 94 L 01/19/23 02:30 80 13 96 01/19/23 02:20 79 13 94 L 01/19/23 02:10 15 124/81 93 L 01/19/23 02:00 80 14 95 01/19/23 01:50 77 14 94 L 01/19/23 01:40 80 14 119/72 92 L 01/19/23 01:30 78 14 94 L 01/19/23 01:20 87 18 93 L 01/19/23 01:10 79 17 120/77 93 L 01/19/23 01:00 77 14 132/77 95 01/19/23 00:50 78 20 97 01/19/23 00:40 80 17 132/77 97 01/19/23 00:30 80 16 97 01/19/23 00:20 83 18 96 01/19/23 00:10 89 20 124/80 94 L 01/19/23 00:00 83 21 96 01/18/23 23:50 81 19 98 01/18/23 23:40 87 13 141/87 01/18/23 23:30 10 L 01/18/23 23:10 14 139/80 01/18/23 23:00 84 97 01/18/23 22:50 85 13 97 01/18/23 22:40 87 19 149/87 01/18/23 22:30 97 11 L 118/74 01/18/23 22:19 88 01/18/23 22:00 105 H 16 121/68 97 01/18/23 16:55 98.1 F 94 16 160/86 95 Intake and Output 01/18/23 01/19/23 01/19/23 22:59 06:59 14:59 Other: Weight 65.771 kg GENERAL: The patient is lying in bed and is not in acute distress. CHEST: The heart rate is regular rate rhythm. No murmurs to auscultation. LUNG: Clear to auscultation bilaterally no wheezing noted throughout. Not labored breathing. ABDOMEN/GI: Bowel sounds present in all 4 quadrants. No tenderness to palpation throughout. NEUROLOGICAL: Higher mental function: The patient is awake, alert, oriented to self, place and time. Patient is following commands. No aphasia and no neglect. Cranial nerves: The pupils are round, equal and reactive to light and accommodation. Visual mera are full to confrontation throughout. Extraocular movement is intact no nystagmus is noted. Facial sensation is normal to touch throughout. The facial strength is normal throughout. Hearing is normal bilat erally to hand rub. Tongue is midline and moved [id number] without any difficulty. No dysarthria is noted. Shoulder shrug is normal bilaterally. Motor: The strength is 5 over 5 throughout uppers while lowers are 4+ to 5-.. Normal tone and bulk. Cerebellum: Normal finger to nose bilaterally. Sensation: Sensation is normal to touch throughout. Reflexes (right/left): 1+ throughout. Plantars are mute bilaterally. Results - Laboratory Findings CBC and BMP: 01/18/23 18:32 01/18/23 18:32 Abnormal Lab Findings: Abnormal Labs 01/18/23 01/18/23 01/18/23 18:32 18:32 18:32 RBC 3.55 L MCV 110.5 H MCH 37.1 H Macrocytosis Marked A APTT 20.1 L Creatinine 0.47 L Glucose 165 H Magnesium 1.5 L Assessment and Plan Assessment: This is a 52-year-old gentleman with history of significant alcohol use and last drink was on 01/08/2023, colon cancer status post chemotherapy about 3 years ago who presented emergency department from [place] because of the seizure. -New onset seizure-like episode (reported at [facility] as tonic-clonic). Seems provoked due to electrolyte abnormality (hypomagesemia). I would expect the alcohol withdrawal to be earlier than yesterday since last drink was on 01/08/23 and his episode was on 01/18/23. Also for seizure I would expect his labs to be reactive (such as wbc, lactic acid, kidney function) but his were normal. Rule out brain metastases especially with a history of colon cancer. -History of significant alcohol use and last drink 01/08/23 -History of colon cancer status post chemotherapy about 3 years ago -Diabetes mellitus -Peripheral neuropathy: Due to multifactorial: Chemotherapy as well as the diabetes and significant alcohol use Plan: I'll not start the patient on any antiseizure medications since this is a new onset seizure and is seems provoked less the patient has at any seizure activity on the EEG or MRI the brain is suggestive of lesion that would increase risk for seizure. -Ordered MRI of the brain with and without to rule out any brain metastases especially with a history of colon cancer Ordered routine EEG I started the patient on thiamine 100 mg daily Ordered vitamin B12, folate, vitamin B6. Patient has macrocytosis and will rule out any vitamin deficiency as a result -Patient was counseled to continue with alcohol cessation and to continue seek help. -Because of the seizure, patient to avoid driving for 6 month per the [place] DMV. The avoid the [place], swimming unassisted or using any heavy machinery. Patient needs to be evaluated as outpatient neurologist for further evaluation for easing on restriction if not felt to be seizure. -Defer the rest of the medical management to primary team The plan discussed with the patient Thank you for the consultation Time with Patient: Greater than 30
[2023-01-19] MEDS ORDERED: LOPERAMIDE 2 MG CAP PO PRN (12:54)
[2023-01-19] MEDS ORDERED: ACETAMINOPHEN TAB 325 MG TAB PO PRN (12:54)
[2023-01-19] MEDS ORDERED: traZODone HCL 100 MG TAB PO PRN (12:54)
[2023-01-19] MEDS ORDERED: diphenhydrAMINE 25 MG CAP PO PRN (12:54)
[2023-01-19] MEDS ORDERED: LEVSIN PO PRN (12:54)
[2023-01-19] MEDS ORDERED: ONDANSETRON 4 MG TAB PO PRN (12:54)
[2023-01-19] MEDS ORDERED: Magnesium Replacement Protocol 1 EACH MISC MISCELLANE PRN (12:56)
[2023-01-19] MEDS ORDERED: Potassium Replacement Protocol 1 EACH MISC MISCELLANE PRN (12:56)
--- NOTE | 2023-01-19 13:13 | XR ---
EXAMINATION TYPE: XR chest 1V portable DATE OF EXAM: 01/19/2023 COMPARISON: NONE HISTORY: Chest pain TECHNIQUE: Single frontal view of the chest is obtained. FINDINGS: There is no focal air space opacity, pleural effusion, or pneumothorax seen. The cardiac silhouette size is within normal limits. The osseous structures are intact. IMPRESSION: No acute process.
[2023-01-19] MEDS ORDERED: NON FORMULARY DRUG (Calcium/Magnesium/Zinc/Vitamin D 334/134/5mg 1 TAB) PO SCH (16:00)
[2023-01-19] MEDS: PANTOPRAZOLE 40 MG TABLET PO SCH (17:18)
[2023-01-19 20:46] LABS: Glucose,Whole Blood 178 mg/dL (70-110)
[2023-01-19] MEDS: SODIUM CHLORIDE 0.9% 1,000 ML IV SCH (21:11)
[2023-01-19] MEDS: CLARITHROMYCIN 500 MG TAB PO SCH (22:29)
--- NOTE | 2023-01-20 01:25 | EEG ---
ELECTROENCEPHALOGRAM REPORT CLINICAL HISTORY: This is a 52-year-old gentleman with history of alcohol use who has a witnessed seizure- like activity outside the hospital. The video EEG is obtained to evaluate for seizure epileptiform activity. RELEVANT MEDICATION: The patient is not on any antiseizure medication. EEG TYPE: A routine 21-channel EEG is performed with video using the 10/20 electrode placement system. DESCRIPTION: Wakefulness is only obtained. During awake state, the posterior-dominant rhythm consists of low to moderate voltage of 9.5 to 10 hertz activity that is well modulated sustained. There is no sleep architecture seen. There is no focal slowing. Interictal and ictal is none. ACTIVATION PROCEDURE: Photic stimulation did not evoke a positive driving response. There is no abnormality during the photic stimulation. Hyperventilation is not performed. CLINICAL INTERPRETATION: This is a normal routine EEG. There is no focal slowing, epileptiform discharge or seizure on the EEG. Clinical correlation is recommended. JEWEL / ZUELYMA: [id number] /
--- NOTE | 2023-01-20 03:52 | HP ---
HISTORY AND PHYSICAL CHIEF COMPLAINT: Seizure disorder. HISTORY OF PRESENT ILLNESS: This 52-year-old gentleman with a past medical history of multiple medical problems including colon cancer, chemotherapy, who was in alcohol rehab. The patient apparently was in [place] for the last 10 days and the patient had tonic-clonic seizures and the patient is unable to remember what happened. The patient came to [facility] for further evaluation and treatment. There is no history of any fever, rigors, chills at this time. PAST MEDICAL HISTORY: Colon cancer, history of EtOH. The rest of history and rest of the chart is also reviewed. HOME MEDICATIONS: Biaxin, dose and rest of medications reviewed. ALLERGIES: None. FAMILY HISTORY: History of breast cancer in the family. SOCIAL HISTORY: Alcohol abuse, THC, smoking. REVIEW OF SYSTEMS: A 14-point review is negative except as mentioned earlier. PHYSICAL EXAMINATION: VITAL SIGNS: Pulse 77, blood pressure 110/70, respirations 20. HEENT: Conjunctivae normal. NECK: No JVD. CARDIOVASCULAR: S1, S2. RESPIRATIONS: Clear to auscultation. ABDOMEN: Soft. LEGS: No edema. NERVOUS SYSTEM: No focal deficits. LABORATORY DATA: Reviewed. MCV noted. Otherwise, magnesium is 1.5. CT of the brain, no acute process. ASSESSMENT: 1. Acute tonic-clonic seizures, possible alcohol withdrawal secondary to hypomagnesemia. 2. History of EtOH. 3. History of colon cancer, on chemo. 4. History of nicotine dependence. 5. Multiple medical issues. RECOMMENDATIONS AND DISCUSSION: This 52-year-old gentleman presented with multiple complex medical issues. We will monitor the patient closely. I would supplement magnesium, Ativan p.r.n. Resume the home medications. Otherwise, . CT scan is noted. I would also recommend a chest x-ray also. Prognosis guarded. Further recommendations to follow. See orders for further details. MMODL / IJN: [id number] / MTDD
[2023-01-20 06:16] LABS: Glucose,Whole Blood 209 mg/dL (70-110)
[2023-01-20] MEDS: PANTOPRAZOLE 40 MG TABLET PO SCH ×2 (06:50→15:37)
[2023-01-20] MEDS ORDERED: GLIMEPIRIDE 2 MG TAB PO SCH (09:00)
[2023-01-20] MEDS ORDERED: amLODIPine 5 MG TAB PO SCH (09:00)
[2023-01-20 10:14] LABS: HCT 35.9 % (39.6-50.0); HGB 12.1 g/dL (13.0-17.0); MCHC 33.7 g/dL (32.0-37.0); MCV 109.8 fL (80.0-97.0); Mean Platelet Volume 10.6 fL (9.5-12.2); NRBC Per 100 WBC 0 /100 WBCS (0.0-0.0); Platelet Count 287 X 10*3/uL (140-440); RBC 3.27 X 10*6/uL (4.40-5.60); RDW 13.8 % (11.5-14.5); WBC 8.88 X 10*3/uL (4.50-10.00)
[2023-01-20] MEDS: THIAMINE 100 MG TAB PO SCH (10:14)
[2023-01-20] MEDS: CLARITHROMYCIN 500 MG TAB PO SCH (10:14)
[2023-01-20 10:24] LABS: African American GFR (CKD) 144.4 (60.0-200.0); Albumin 3.3 g/dL (3.8-4.9); Albumin/Globulin Ratio 1.06 (1.60-3.17); Anion Gap 9.2 mmol/L (10.00-18.00); BUN/Creat Ratio 16.2 Ratio (12.00-20.00); Blood Urea Nitrogen 8.1 mg/dL (9.0-27.0); Calcium 9.1 mg/dL (8.7-10.3); Carbon Dioxide 24.8 mmol/L (20.0-27.5); Globulin 3.1 g/dL (1.6-3.3); Magnesium 1.9 mg/dL (1.5-2.4); Non-African American GFR(CKD) 124.6 (60.0-200.0); Potassium 4.4 mmol/L (3.5-5.5); Total Bilirubin 0.6 mg/dL (0.30-1.20); Total Protein 6.4 g/dL (6.2-8.2)
[2023-01-20 10:56] LABS: Basophils # (M) 0.27 X 10*3/uL (0.00-0.10); Eosinophils # (M) 0 X 10*3/uL (0.04-0.35); Lymphocytes # (M) 1.78 X 10*3/uL (0.90-5.00); Macrocytosis (M) 2+; Monocytes # (M) 1.42 X 10*3/uL (0.20-1.00); Neutrophils # (M) 5.42 X 10*3/uL (2.00-8.90); Neutrophils % (M) 61 %
--- NOTE | 2023-01-20 12:28 | MR ---
EXAMINATION TYPE: MR brain wo/w con DATE OF EXAM: 01/20/2023 12:02 PM CLINICAL INDICATION:Male, 52 years old with history of seizure; Blackout, seizure COMPARISON: 01/18/2023 TECHNIQUE: Multi planar, multi sequence imaging was performed through the brain including: T1, T2, In version recovery, susceptibility weighted imaging and gradient echo imaging and Diffusion weighted im aging. The patient was then given intravenous contrast and multi planar, T1 fat-saturation images wer e obtained. IV Contrast: 6.5 cc Gadavist FINDINGS: Motion limited exam. Generalized cerebral atrophy with proportional dilation to the ventricular syste m. The reynolds-white junctions, ventricular system, basal cisterns appear unremarkable. Diffusion-weight ed imaging shows no evidence of restricted diffusion to suggest acute/subacute infarct. Intracranial arterial flow voids are maintained. Midline structures show no abnormality. Scattered foci of high T2 signal intensity are seen within the periventricular white matter. The susceptibility weighted image s do not reveal any evidence for micro-hemorrhage. After administration of gadolinium, no abnormal en hancement is seen. The bone marrow signal is within normal limits. Paranasal sinuses and mastoid air cells: Mild scattered paranasal sinus disease. Visualized orbits: Orbital contents are intact. IMPRESSION: Motion limited exam. 1. No evidence of intracranial mass, acute/subacute infarct, or abnormal enhancement. 2. Nonspecific white matter changes, likely related to small vessel ischemic disease 3. Mild generalized atrophy changes.
[2023-01-20] MEDS ORDERED: FOLIC ACID 1 MG TAB PO SCH (14:00)
--- NOTE | 2023-01-20 14:08 | P.PN ---
Subjective Progress Note Date: 01/20/23 The patient seen at bedside and he states that he's doing well. No further passing out or jerk in of any extremities. He feels back to baseline. Objective - Vital Signs Vital signs: Vital Signs Temp 98.3 F 01/20/23 07:03 Pulse 70 01/20/23 10:23 Resp 18 01/20/23 10:23 BP 151/86 01/20/23 07:03 Pulse Ox 98 01/20/23 07:03 FiO2 Intake & Output 01/19/23 01/20/23 01/20/23 18:59 06:59 18:59 Other: # Voids 2 - Exam GENERAL: The patient is lying in bed and is not in acute distress. NEUROLOGICAL: Higher mental function: The patient is awake, alert, oriented to self, place and time. Patient is following commands. No aphasia and no neglect. Cranial nerves: The pupils are round, equal and reactive to light and accommodation. Visual mera are full to confrontation throughout. Extraocular movement is intact no nystagmus is noted. Facial sensation is normal to touch throughout. The facial strength is normal throughout. Hearing is normal bila terally to hand rub. Tongue is midline and moved [id number] without any difficulty. No dysarthria is noted. Shoulder shrug is normal bilaterally. Motor: The strength is 5 over 5 throughout uppers while lowers are 4+ to 5-.. Normal tone and bulk. Cerebellum: Normal finger to nose bilaterally. Sensation: Sensation is normal to touch throughout. Reflexes (right/left): 1+ throughout. Plantars are mute bilaterally. Some other workup during his hospital visit consisted of: MCV is 110, macrocytosis, hemoglobin is 13.2. Photic acid is 5.10 which is considered low normal. Vitamin B12 is 888 Hemoglobin A1c is 8.0 Initial serum glucose is 165 the. Magnesium is 1.5. Calcium is 8.9. Plasma lactic acid vein is 1.1. Serum alcohol level is less than 10 CT of the brain is reported as no acute process. I personally reviewed the CT and I agree with the report. Routine EEG is normal. My the brain is reported as motion limited exam. No evidence of intracranial mass, acute/subacute infarct or abnormal enhancement. Nonspecific white matter changes, likely related to small vessel ischemic disease. Mild generalized atrophy changes. I personally reviewed the MRI and agree with the report. - Labs CBC & Chem 7: 01/20/23 04:28 01/20/23 04:28 Labs: Abnormal Lab Results - Last 24 Hours (Table) 01/19/23 01/19/23 01/20/23 Range/Units 12:35 20:44 04:28 RBC 3.27 L (4.40-5.60) X 10*6/uL Hgb 12.1 L (13.0-17.0) g/dL Hct 35.9 L (39.6-50.0) % MCV 109.8 H (80.0-97.0) fL MCH 37.0 H (27.0-32.0) pg Monocytes # (Manual) 1.42 H (0.20-1.00) X 10*3/uL Eosinophils # (Manual) 0 L (0.04-0.35) X 10*3/uL Basophils # (Manual) 0.27 H (0.00-0.10) X 10*3/uL Anion Gap (10.00-18.00) mmol/L BUN (9.0-27.0) mg/dL Creatinine (0.6-1.5) mg/dL Glucose (70-110) mg/dL POC Glucose (mg/dL) 178 H (70-110) mg/dL Hemoglobin A1c 8.0 H (0.0-6.0) % AST (14-35) U/L Albumin (3.8-4.9) g/dL Albumin/Globulin Ratio (1.60-3.17) g/dL 01/20/23 01/20/23 Range/Units 04:28 06:02 RBC (4.40-5.60) X 10*6/uL Hgb (13.0-17.0) g/dL Hct (39.6-50.0) % MCV (80.0-97.0) fL MCH (27.0-32.0) pg Monocytes # (Manual) (0.20-1.00) X 10*3/uL Eosinophils # (Manual) (0.04-0.35) X 10*3/uL Basophils # (Manual) (0.00-0.10) X 10*3/uL Anion Gap 9.20 L (10.00-18.00) mmol/L BUN 8.1 L (9.0-27.0) mg/dL Creatinine 0.5 L (0.6-1.5) mg/dL Glucose 168 H (70-110) mg/dL POC Glucose (mg/dL) 209 H (70-110) mg/dL Hemoglobin A1c (0.0-6.0) % AST 54 H (14-35) U/L Albumin 3.3 L (3.8-4.9) g/dL Albumin/Globulin Ratio 1.06 L (1.60-3.17) g/dL Assessment and Plan Assessment: This is a 52-year-old gentleman with history of significant alcohol use and last drink was on 01/08/2023, colon cancer status post chemotherapy about 3 years ago who presented emergency department from [facility] because of the seizure. -New onset seizure-like episode (reported at [facility] as tonic-clonic). Seems provoked due to electrolyte abnormality (hypomagesemia). I would expect the alcohol withdrawal to be earlier than yesterday since last drink was on 01/08/23 and his episode was on 01/18/23. Also for seizure I would expect his labs to be reactive (such as wbc, lactic acid, kidney function) but his were normal. Cannot rule out syncopal episode that presented like seizure-like. MRI of the brain is a routine EEG are unremarkable -History of significant alcohol use and last drink 01/08/23 -Low normal folic acid due to significant alcohol use -History of colon cancer status post chemotherapy about 3 years ago -Diabetes mellitus -Peripheral neuropathy: Due to multifactorial: Chemotherapy as well as the diabetes and significant alcohol use Plan: I'll not start the patient on any antiseizure medications since this is a new onset seizure-like. Continue thiamine 100 mg daily. Started folic acid 1 mg daily since the patient has low normal folic acid -Patient was counseled to continue with alcohol cessation and to continue seek help. -Because of the seizure, patient to avoid driving for 6 month per the [place] DMV. The avoid the [place], swimming unassisted or using any heavy machinery. Patient needs to be evaluated as outpatient neurologist for further evaluation for easing on restriction if not felt to be seizure. She was notified to the patient. -Defer the rest of the medical management to primary team -Recommend the patient to follow-up with a neurologist within 1-2 weeks as an outpatient. The plan discussed with the patient and his nurse. Otherwise no other neurological workup is needed. Time with Patient: Less than 30
--- NOTE | 2023-01-20 14:55 | P.DS ---
Providers Date of admission: 01/18/23 21:00 Expected date of discharge: 01/20/23 Attending physician: Darien Diaz Consults: 01/18/23 20:58 Consult Physician Routine Consulting Provider: Priyank Riley Consult Reason/Comments: seizure Do you want consulting provider notified?: Yes Primary care physician: Stated None Hospital Course: Discharge diagnoses; Alcohol withdrawal seizures Hypomagnesemia History of alcohol abuse history of colon cancer Hospital course; 52-year-old male he has been at [facility] ER detox facility for approximately one week. His last drink was approximately 11 days ago. Patient was at group therapy when all of a sudden he had tonic-clonic convulsive activity. Patient doesn't recall the episode. Patient has any history of seizures. He has had alcohol withdrawals in the past. Patient was admitted to hospitalist service, neurology was consulted. They ordered EEG and MRI. EEG was negative for any seizures. MRI was also negative for acute intracranial process Because of the seizure, patient to avoid driving for 6 month per the [place] DMV. The avoid the [place], swimming unassisted or using any heavy machinery. Patient needs to be evaluated as outpatient neurologist for further evaluation for easing on restriction if not felt to be seizure. She was notified to the patient. Neurology recommended discharging patient on folic acid and thiamine PHYSICAL EXAMINATION: GENERAL: The patient is alert and oriented x3, not in any acute distress. Well developed, well nourished. HEENT: Pupils are round and equally reacting to light. EOMI. No scleral icterus. No conjunctival pallor. Normocephalic, atraumatic. No pharyngeal erythema. No thyromegaly. CARDIOVASCULAR: S1 and S2 present. No murmurs, rubs, or gallops. PULMONARY: Chest is clear to auscultation, no wheezing or crackles. ABDOMEN: Soft, nontender, nondistended, normoactive bowel sounds. No palpable organomegaly. MUSCULOSKELETAL: No joint swelling or deformity. EXTREMITIES: No cyanosis, clubbing, or pedal edema. NEUROLOGICAL: Gross neurological examination did not reveal any focal deficits. SKIN: No rashes. Patient Condition at Discharge: Fair Plan - Discharge Summary Discharge Rx Participant: Yes New Discharge Prescriptions: New Folic Acid 1 mg PO DAILY 30 Days #30 tab Continue ondansetron HCL [Zofran] 8 mg PO Q6H PRN PRN Reason: Nausea Acetaminophen Tab [Tylenol] 650 mg PO QID PRN PRN Reason: Pain Loperamide HCl [Imodium A-D] 4 mg PO QID PRN PRN Reason: Diarrhea Ibuprofen [Motrin Ib] 600 mg PO Q6H PRN PRN Reason: Pain Glimepiride [Amaryl] 2 mg PO DAILY Calcium/Magnesium/Zinc/Vitamin D 334/134/5mg 1 tab PO TID Clarithromycin [Biaxin] 500 mg PO Q12HR traZODone HCL [Desyrel] 50 - 150 mg PO HS PRN PRN Reason: SLEEP Hyoscyamine Sulfate [Levsin] 0.125 mg PO QID PRN PRN Reason: CRAMPS Omeprazole 20 mg PO TID@0600,1130,1630 Chlorpheniramine Maleate [Chlor-Trimeton] 4 mg PO Q4H PRN PRN Reason: Allergy Symptoms Thiamine [Vitamin B-1] 100 mg PO DAILY #30 tab Amoxicillin 1,000 mg PO BID amLODIPine [Norvasc] 5 mg PO DAILY Discharge Medication List Acetaminophen Tab [Tylenol] 650 mg PO QID PRN 01/11/23 [History] Calcium/Magnesium/Zinc/Vitamin D 334/134/5mg 1 tab PO TID 01/11/23 [History] Chlorpheniramine Maleate [Chlor-Trimeton] 4 mg PO Q4H PRN 01/11/23 [History] Glimepiride [Amaryl] 2 mg PO DAILY 01/11/23 [History] Ibuprofen [Motrin Ib] 600 mg PO Q6H PRN 01/11/23 [History] Loperamide HCl [Imodium A-D] 4 mg PO QID PRN 01/11/23 [History] Omeprazole 20 mg PO TID@0600,1130,1630 01/11/23 [History] ondansetron HCL [Zofran] 8 mg PO Q6H PRN 01/11/23 [History] Thiamine [Vitamin B-1] 100 mg PO DAILY #30 tab 01/13/23 [Rx] Amoxicillin 1,000 mg PO BID 01/18/23 [History] Clarithromycin [Biaxin] 500 mg PO Q12HR 01/18/23 [History] amLODIPine [Norvasc] 5 mg PO DAILY 01/18/23 [History] traZODone HCL [Desyrel] 50 - 150 mg PO HS PRN 01/18/23 [History] Hyoscyamine Sulfate [Levsin] 0.125 mg PO QID PRN 01/19/23 [History] Folic Acid 1 mg PO DAILY 30 Days #30 tab 01/20/23 [Rx] Follow up Appointment(s)/Referral(s): None,Stated [Primary Care Provider] - 1-2 days Discharge Disposition: OTHER INSTITUTION NOT DEFINED
[2023-01-20 14:58] VITALS: BP 114/70; PULSE 78; RESP 16; TEMP 98.6
== END 2023-01-20 16:25 | disposition other institution (70) ==
LOC: EC 16:51 → 4SSUR 21:00 → INTOOBSV 21:00 → 4SSUR 01-19 01:40 → UNDODISIN 01-20 16:25
PROVIDERS: ADMIT Family Medicine; ATTEND Family Medicine
DX: G40.89 Other seizures (principal); F10.239 Alcohol dependence with withdrawal, unspecified; E83.42 Hypomagnesemia; F17.200 Nicotine dependence, unspecified, uncomplicated; F12.90 Cannabis use, unspecified, uncomplicated; E11.42 Type 2 diabetes mellitus with diabetic polyneuropathy; D75.89 Other specified diseases of blood and blood-forming organs; Z79.899 Other long term (current) drug therapy; Z85.038 Personal history of other malignant neoplasm of large intestine; Z92.21 Personal history of antineoplastic chemotherapy; Z80.3 Family history of malignant neoplasm of breast; Z80.0 Family history of malignant neoplasm of digestive organs; Y90.0 Blood alcohol level of less than 20 mg/100 ml
CPT/HCPCS: 96365; 96366; 99285; 36415; 95816; 93005; 84207; 80053; 80048; 82607; 82746; 83605; 83735 ×2; 85025 ×2; 85610; 85730; 80320; 83036; 71045; 70450; 70553; G0378 ×3; J3475; A9585